=== PATIENT | female | born 1980 | race American Indian/Alaskan Native ===

== ENCOUNTER 2019-07-26 08:17 | Emergency (ER) | payer OTHER ==
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
== END 2019-07-26 10:06 | disposition home or self-care (01) ==
LOC: ED 08:17
DX: S29.9XXA Unspecified injury of thorax, initial encounter (principal); F10.129 Alcohol abuse with intoxication, unspecified; F17.200 Nicotine dependence, unspecified, uncomplicated; F12.10 Cannabis abuse, uncomplicated; V47.5XXA Car driver injured in collision with fixed or stationary object in traffic accident, initial encounter; W22.11XA Striking against or struck by driver side automobile airbag, initial encounter; Y93.89 Activity, other specified; Y92.410 Unspecified street and highway as the place of occurrence of the external cause; Y99.8 Other external cause status
CPT/HCPCS: 70450; 71046; 93005; 93010